=== PATIENT | female | born 1940 | race Caucasian/White ===

== ENCOUNTER → 2023-05-19 10:00 | Outpatient (REF) | payer MEDICARE, OTHER, SELFPAY | LOC: WOUND 10:00 | PROVIDERS: ATTENDING PHYSICIAN Surgery; REFERRING PHYSICIAN Internal Medicine | DX: L97.822 Non-pressure chronic ulcer of other part of left lower leg with fat layer exposed (principal); S81.812A Laceration without foreign body, left lower leg, initial encounter; I87.2 Venous insufficiency (chronic) (peripheral); X58.XXXA Exposure to other specified factors, initial encounter | CPT/HCPCS: 97597 ==

== ENCOUNTER → 2023-05-28 16:00 | Outpatient (REF) | payer MEDICARE, OTHER, SELFPAY | LOC: WOUND 16:00 | PROVIDERS: ATTENDING PHYSICIAN Surgery; REFERRING PHYSICIAN Internal Medicine | DX: L97.822 Non-pressure chronic ulcer of other part of left lower leg with fat layer exposed (principal); S81.812A Laceration without foreign body, left lower leg, initial encounter; I87.2 Venous insufficiency (chronic) (peripheral); X58.XXXA Exposure to other specified factors, initial encounter | CPT/HCPCS: 11042; 97597 ==

== ENCOUNTER → 2024-01-18 08:27 | Outpatient (REF) | payer MEDICARE, OTHER, SELFPAY ==
[2024-01-18 09:12] LABS: % Basophils 1.2 % (0-2); % Eosinophils 1.2 % (0-6); % Immature Granulocytes 0.5 % (0-0.5); % Lymphocytes 36.8 % (20.5-51.1); % Monocytes 10.1 % (1.7-9.3); % Neutrophils 50.2 % (42.2-75.2); Absolute Basophils 0.1 10^3/uL (0-0.2); Absolute Eosinophils 0.1 10^3/uL (0-0.7); Absolute Lymphocytes 1.6 10^3/uL (1.2-3.4); Absolute Monocytes 0.4 10^3/uL (0.1-0.6); Absolute Neutrophils 2.2 10^3/uL (1.4-6.5); Hemoglobin 13.8 g/dL (12.0-16.0); Mean Corp Hgb Conc. 33.7 g/dL (33.0-37.0); Mean Corpuscular Hgb 30.7 pg (27.0-31.0); Mean Corpuscular Volume 91.1 fL (81.0-99.0); Mean Platelet Volume 9.8 fL (7.4-10.4); Nucleated Red Blood Cells % 0 %; Platelet Count 216 10^3/uL (130-400); Red Cell Dist. Width 12.6 % (11.5-14.5); White Blood Cell Count 4.3 10^3/uL (4.8-10.8)
[2024-01-18 10:05] LABS: Vitamin D, 25-OH*** 54.4 ng/mL (30-80)
[2024-01-18 10:06] LABS: ALT (SGPT) 16 U/L (0-35); AST (SGOT) 25 U/L (14-36); Albumin 3.8 g/dl (3.5-5.0); Alkaline Phosphatase 62 U/L (38-126); Blood Urea Nitrogen 16 mg/dl (7-17); Calcium 9.1 mg/dl (8.4-10.2); Carbon Dioxide 30 mmol/L (22-30); Chloride 109 mmol/L (98-107); Glucose 86 mg/dl (70-99); HDL Cholesterol 76 mg/dl; LDL Cholesterol, Calculated 191 mg/dl; Potassium 4.1 mmol/L (3.5-5.1); Sodium 141 mmol/L (135-145); Total Bilirubin 1.2 mg/dl (0.2-1.3); Total Cholesterol 286 mg/dl (50-199); Total Protein 6.1 g/dl (6.3-8.2); Triglyceride 96 mg/dl (10-149); Very Low Density Lipoprotein 19 mg/dl (0-30); eGFR > 60.00
[2024-01-18 10:18] LABS: TSH 3.19 uIU/ml (0.47-4.68)
== END ==
LOC: REG 08:27
PROVIDERS: ATTENDING PHYSICIAN Nuclear Medicine Nuclear Cardiology; FAMILY PHYSICIAN Internal Medicine
DX: E78.2 Mixed hyperlipidemia (principal); K21.9 Gastro-esophageal reflux disease without esophagitis; Z00.00 Encounter for general adult medical examination without abnormal findings; Z79.899 Other long term (current) drug therapy; E21.3 Hyperparathyroidism, unspecified
CPT/HCPCS: 36415; 80053; 80061; 82306; 84443; 85025

== ENCOUNTER 2024-07-05 10:51 | Outpatient (RCR) | payer MEDICARE, OTHER, SELFPAY | END 2024-07-05 23:59 | disposition home or self-care (01) | LOC: RPT 10:51 | PROVIDERS: ATTENDING PHYSICIAN Psychiatry & Neurology Neurology | DX: M54.2 Cervicalgia (principal); Z73.6 Limitation of activities due to disability | CPT/HCPCS: 97010; 97110; 97112; 97140; 97162 ==

== ENCOUNTER 2024-07-19 10:36 | Outpatient (RCR) | payer MEDICARE, OTHER, SELFPAY | END 2024-07-19 23:59 | disposition home or self-care (01) | LOC: RPT 10:36 | PROVIDERS: ATTENDING PHYSICIAN Psychiatry & Neurology Neurology | DX: M54.2 Cervicalgia (principal); Z73.6 Limitation of activities due to disability | CPT/HCPCS: 97010; 97140 ==

== ENCOUNTER 2024-08-09 02:38 | Observation (INO) | payer MEDICARE, OTHER, SELFPAY ==
[2024-08-08 19:34] VITALS: BP 144/56
[2024-08-08 19:56] LABS: % Basophils 0.3 % (0-2); % Immature Granulocytes 0.8 % (0-0.5); % Lymphocytes 1.7 % (20.5-51.1); % Monocytes 2.3 % (1.7-9.3); % Neutrophils 94.9 % (42.2-75.2); Absolute Basophils 0.1 10^3/uL (0-0.2); Absolute Immature Granulocytes 0.2 10^3/uL (0-0.05); Absolute Lymphocytes 0.3 10^3/uL (1.2-3.4); Absolute Monocytes 0.4 10^3/uL (0.1-0.6); Absolute Neutrophils 18.6 10^3/uL (1.4-6.5); Hemoglobin 14.8 g/dL (12.0-16.0); Mean Corp Hgb Conc. 35.2 g/dL (33.0-37.0); Mean Corpuscular Hgb 30.7 pg (27.0-31.0); Mean Corpuscular Volume 87.1 fL (81.0-99.0); Mean Platelet Volume 9.4 fL (7.4-10.4); Nucleated Red Blood Cells % 0 %; Platelet Count 179 10^3/uL (130-400); Red Blood Cell Count 4.82 10^6/uL (4.20-5.40); Red Cell Dist. Width 12.1 % (11.5-14.5); White Blood Cell Count 19.5 10^3/uL (4.8-10.8)
[2024-08-08 20:00] VITALS: BP 139/51
[2024-08-08 20:19] LABS: ALT (SGPT) 35 U/L (0-35); AST (SGOT) 50 U/L (14-36); Albumin 4.1 g/dl (3.5-5.0); Alkaline Phosphatase 62 U/L (38-126); Blood Urea Nitrogen 28 mg/dl (7-17); Calcium 9.4 mg/dl (8.4-10.2); Carbon Dioxide 25 mmol/L (22-30); Chloride 100 mmol/L (98-107); Glucose 131 mg/dl (70-99); Potassium 4.3 mmol/L (3.5-5.1); Sodium 135 mmol/L (135-145); Total Bilirubin 1.7 mg/dl (0.2-1.3); Total Protein 6.2 g/dl (6.3-8.2); eGFR > 60.00
--- NOTE | 2024-08-08 22:34 | ED.GENMED ---
History of Present Illness
General
Chief Complaint: Dizziness
Source: patient
Exam Limitations: none
Time Seen by Provider: 08/08/24 22:13
History of Present Illness
History of Present Illness:
This is a 84 year old female that comes in with c/o dizziness. States that she has pain in the occipital nerve and she is waiting for an MRI on August. States that her pain seems to be getting worse. States that its like a Migraine. States
that last night she got up at 3am and she was dizzy and needed to hold on to things. States that she felt like she was spinning. Then at 4am her neck pain awoke her and she was still spinning when she went to the BR. Then at 5am it was just as bed.
States that she has not eaten today but she took her medication. States that she had chills, headache all over with dizziness and nausea. States that she also had this shock that was only 1 second in her chest. Son states that what concerned him was
she was sleeping all day. Denies any fever, chest pain, SOB, abd pain, vomiting, diarrhea, urinary burning.
Past History
Past History
ED Past Medical History: Cancer (Skin CA), COPD, GERD, Hypercholesterolemia and Other (Dizziness, Neck pain, PNA, IBS, Renal calculus, UTI, Rosacia, LBBB, Ulcers)
ED Past Surgical History: Cholecystectomy
Social History
Tobacco: Former smoker
Alcohol: None
Personal:
Living: with family
Review of Systems
Review of Systems
All Other Systems: ROS reviewed and negative except as documented in HPI and ROS
Constitutional: Reports chills; Denies fever
EENT: Reports no symptoms
Respiratory: Denies cough or trouble breathing
Cardiac: Reports no symptoms; Denies chest pain
ABD/GI: Reports nausea; Denies abdominal pain, vomiting or diarrhea
: Denies dysuria, frequency or urgency
Musculoskeletal: Reports no symptoms
Skin: Reports no symptoms
Neurological: Reports dizzy and headache (All over)
Psychiatric: Reports no symptoms
Phy Exam
General Physical Exam
General Presentation: no apparent distress
General age: appears stated age
General Skin: warm and dry
General Habitus: elderly
General Mental: alert
General Hydration: dry mucous membranes
ENT Exam
ENT Exam: TM's normal and pharynx normal
Eye Exam
Eye Exam: EOMI
Cardiovascular Exam
Cardiovascular Exam: regular rate/rhythm and normal peripheral pulses
Pulmonary Exam
Pulmonary Exam: lungs clear, no respiratory distress, no rales, chest non tender, no crackles, no rhonchi, no wheezing and no cough
Gastrointestinal Exam
Gastrointestinal Exam: normal bowel sounds, non tender, soft, no organomegaly, no pulsatile mass and non distended
Musculoskeletal Exam
Musculoskeletal Exam: full ROM and edema (Very slight lower leg edema nonpitting)
Skin Exam
Skin Exam: normal color, warm/dry, no rash and no petechia
Psychiatric Exam
Psychiatric Exam: normal mood/affect
Course
Orders/Labs/Results
Orders:
Orders
08/08/24 19:49
CMP [Comprehensive Metabolic Panel] Urgent
Complete Blood Count/With Diff Urgent
08/08/24 22:26
Straight cath- Treatment ONCE
0.9% Sodium Chloride 1000 ml [Nss] 1,000 ml IV BOLUS
Acetaminophen [Tylenol] 1,000 mg PO NOW STA
08/08/24 22:27
CT Head W/o Iv Contrast Urgent
Comment:
Reason For Exam: Dizziness. Headache
08/08/24 22:41
Electrocardiogram (*1) Urgent
Reason for Study: Vertigo / Dizzy
EKG- Treatment ONCE
08/08/24 23:02
Urinalysis Reflex To Culture Urgent
Date Specimen was Collected: 08/08/24
Time Specimen was Collected: 22:29
Urine Microscopic Reflex Cult Urgent
Urine Culture Urgent
NEHEMIAH Source: U
Specimen Description:
Date Specimen was Collected: 08/08/24
Time Specimen was Collected: 22:29
08/08/24 23:34
COVID-19 Antigen Urgent
Source: Nasal Swab
Troponin I Urgent
08/09/24 01:01
Ketorolac [Toradol] 15 mg IV NOW STA
08/09/24 01:56
Gabapentin [Neurontin] 300 mg PO NOW STA
Abnormal Lab Results
08/08/24 08/08/24
19:49 23:02
WBC 19.5 H 10^3/uL
(4.8-10.8)
Abs Immat Gran (auto) 0.2 H 10^3/uL
(0-0.05)
Absolute Neuts (auto) 18.6 H 10^3/uL
(1.4-6.5)
Absolute Lymphs (auto) 0.3 L 10^3/uL
(1.2-3.4)
Immature Gran % 0.8 H %
(0-0.5)
Neutrophils % 94.9 H %
(42.2-75.2)
Lymphocytes % 1.7 L %
(20.5-51.1)
BUN 28 H mg/dl
(7-17)
Glucose 131 H mg/dl
(70-99)
Total Bilirubin 1.7 H mg/dl
(0.2-1.3)
AST 50 H U/L
(14-36)
Total Protein 6.2 L g/dl
(6.3-8.2)
Urine Ketones Trace A
(Negative)
Ur Occult Blood Reflex 1+ A
(Negative)
Urine Bilirubin 1+ A
(Negative)
Leukocyte Esterase Rfl Trace A
(Negative)
Urine RBC 3-6 A /HPF
(0-2)
Urine Bacteria (Reflex) Moderate A
(Negative)
08/08/24 19:49
08/08/24 19:49
Leukocytosis, Dehydration. Hyperglycemia, Total joe elevation. AST mildly elevated .Total protein slightly low. Urine negative for infection.
Vital Signs
Initial and Last Documented VS:
Initial Vital Signs
Temp Pulse Resp BP Pulse Ox
97.8 F 110 24 144/56 96
08/08/24 19:34 08/08/24 19:34 08/08/24 19:34 08/08/24 19:34 08/08/24 19:34
Last Documented Vital Signs
Temp Pulse Resp BP Pulse Ox
97.8 F 87 17 139/51 94
08/08/24 19:34 08/08/24 23:45 08/08/24 23:45 08/08/24 23:37 08/08/24 23:45
MDM/Problems Addressed
Differential Diagnosis Includes:
UTI, Chronic dizziness, Vertigo, Dehydration
MDM/Problems Addressed:
This is a 84 year old female that comes in with c/o dizziness. States that she is waiting for an MRI for her Occipital nerve pain. States that she awoke last night with dizziness.
Will check labs, Urine CT head and given IV fluids.
Back into see patient after speaking with Son. Explained that her blood work shows that her WBC are elevated and that she is dehydrated. Continue to wait for the Bottom half of patient urine. Will admit patient due to the Dizziness and headache.
Patient continues with a headache so will give Toradol. Hospitalist notified.
Chronic conditions affecting care:
Occipital nerve pain, UTI
Acute Exacerbation and/or Progression of Chronic Illness:
Dehydration. Occipital nerve pain
*Radiology
Radiology exam reviewed: radiology read reviewed (CT head- Night hawk-NO acute intracrnial process. No intracranial bleed. No calvarial fracture)
*Pulse Oximetry
Patient hypoxic: no
*EKG
Interpreted by ED Provider?: Yes
Heart Rate: 81
Rate: normal
Rhythm: sinus and PAC's
[place]: left axis deviation
Interval: normal interval
QRS Pattern: left bundle branch block
Ischemia: no ischemia
*Critical Care Note
Total Time (30-74mins, 75-104mins- exclusive of procedures): Not Applicable
ED Attending Note
-
Portions of this chart may have been created with voice recognition software.� Occasional wrong word or��sound alike� substitutions may have occurred due to the inherent limitations of voice recognition software.
Discharge Plan
Departure
Prescriptions:
No Action
metronidazole [MetroCream] 0.75 % cream
1 applic topical DAILY
Patient Comments:
facial cream for Rosacea.
cyclosporine [Restasis] 0.4 ML dropperette
1 drp BOTH EYES BID
mesalamine [Lialda] 1.2 GM tablet,delayed release (DR/EC)
2.4 g PO Q12H
Repatha Syringe
1 dose INJ [id number]
meloxicam 15 MG tablet
15 mg PO PRN PRN (Reason: pain)
famotidine 40 MG tablet
40 mg PO BID
tramadol 50 MG tablet
50 mg PO Q6HPRN PRN (Reason: pain)
pantoprazole 40 MG tablet,delayed release (DR/EC)
40 mg PO DAILY PRN (Reason: stomach)
gabapentin 100 MG capsule
300 mg PO HS
albuterol sulfate [Proventil HFA] 90 MCG/PUFF HFA aerosol inhaler
1 puff inhalation PRN PRN (Reason: SOB)
ipratropium bromide 0.5 MG/2.5 ML solution
0.5 mg inhalation R Q4HPRN PRN (Reason: distress)
cyclobenzaprine [Amrix] 15 MG capsule,extended release 24hr
15 mg PO PRN PRN (Reason: pain)
budesonide [Pulmicort Flexhaler] 90 MCG aerosol powdr breath activated
90 mcg inhalation R BID PRN (Reason: SOB)
vit C,E-Fq-iszyr-lutein-zeaxan [PreserVision AREDS-2] 1 EACH capsule
1 ea PO BID
Lactobacillus Combo No.10 [Probiotic] 1 EACH Capsule
1 ea PO DAILY
Vitamin D3 (cholecalciferol):
5,000 units PO DAILY
diazepam [Valium] 2 mg tablet
2 mg PO TID PRN (Reason: muscle spasm) Qty: 6 0RF
Referrals:
Jose Campo DO [Family Provider] -
Interventions
Interventions:
*Risk Screen - Suicide Last Done: 08/08/24 19:27
*Neglect/Abuse Screening Last Done: 08/08/24 19:34
Discharge Date and Time
Print Language: KYRGYZ
[2024-08-08] MEDS: TYLENOL 1000 MG PO (22:56)
[2024-08-08] MEDS: NSS 1000 IV (22:57)
[2024-08-08 23:10] LABS: Urine Albumin Trace (Neg - Trace); Urine Bilirubin 1+ (Negative); Urine Character Clear (Clear); Urine Color Yellow; Urine Glucose Negative (Negative); Urine Ketone Trace (Negative); Urine Leukocyte Trace (Negative); Urine Nitrite Negative (Negative); Urine Occult Blood 1+ (Negative); Urine Urobilinogen 1+ (Neg - 1+)
[2024-08-08 23:37] VITALS: BP 139/51
[2024-08-09] VITALS (7 sets, daily range): BP systolic 117–156; BP diastolic 48–78; BMI 26.2; BMI 25.9
[2024-08-09 00:13] LABS: COVID-19 Antigen Negative (Negative); Troponin I < 0.012 ng/ml
[2024-08-09 01:07] LABS: Urine Mucus Many; Urine Squamous Cell 0-2 /LPF (Few)
[2024-08-09 01:08] LABS: Urine Bacteria Moderate (Negative)
[2024-08-09] MEDS: TORADOL 15 MG IV (01:17)
--- NOTE | 2024-08-09 01:57 | HPS.HSE ---
Family Physician
-
Family Physician: Jose Campo
Chief Complaint
-
Dizziness
History of Present Illness
This is an 84-year-old female with a past medical history significant for cervicogenic head pain, inflammatory bowel disease with possible component of irritable bowel syndrome, hyperlipidemia, rosacea,
possible nephrolithiasis, probable hemorrhoids degenerative disk disease, and degenerative joint disease who presents to the emergency department with acute onset of vertigo.
Patient reported that she woke up at around 3 AM yesterday and had severe spinning sensation while walking to her bathroom. She had to hold on to keep her cell from falling. She was nauseous but there was no vomiting. She went back to rest and
slept till 5 AM. At 5 AM when she got up she continued to have with severe spinning sensation and difficulty ambulating. She said that since then anytime she is up walking or even when she is sitting down at rest she has a spinning sensation. She
is only free of it when she is sleeping. She denies having any vision changes. She denies any headache. She denies any changes in neck pain. She has chronic cervicogenic headaches and reports that current headache is similar to that. She denies
any fevers or chills. She denies any recent cough cold or flulike symptoms. She denies any palpitations. She denies any syncopal episode.
She denies urinary symptoms. She reported that she was sleepy throughout most of the day and this caused concern for someone brought her to the emergency department. She denies any changes to her speech but reports is somewhat clouded thinking.
She denies any facial asymmetry. She denies any new numbness or tingling. She denies any focal weakness in her extremities. She denied any memory lapses.
Images by me she was afebrile blood pressure was 159/51 pulse 89 oxygen saturation was not 4% on room air. ECG shows a sinus rhythm rate of 81 and a left bundle branch block which is unchanged. Few PACs. CT of the head shows no acute intracranial
process. She had a white count of 19,000 with 95% neutrophils. Hemoglobin and platelet counts are within normal limits. Chemistries were within normal limits. LFTs were within normal limits. UA is equivocal.
Medical History
Past Medical History
Past Medical History: Reports Other
Additional Past Medical History:
headache
Chronic osteoarthritis
Inflammatory bowel disease
HLD
Past Surgical History: Reports None
Social History
Tobacco: Non-smoker
Alcohol: None
Drug: None
Personal:
Living: With Family
Employment: Retired
Family History
Family History: Not pertinent
Allergies / Home Medications
Allergies reflects when Allergies were last updated in [facility].
Home Medications with original date entered in [facility]
Allergy/Medication List:
Allergies
Allergy/AdvReac Type Severity Reaction Status Date / Time
adhesive tape Allergy Itching Verified 08/08/24 19:38
Wqntqwe-MNP-EkV Reductase Allergy Unknown Verified 08/08/24 19:38
Inhibitor
Home Medications
cyclosporine 0.05 % eye drops in a dropperette (Restasis) 1 drp BOTH EYES BID 03/14/11
metronidazole 0.75 % topical cream (MetroCream) 1 applic topical DAILY 03/14/11
Lactobacillus Combo No.10 [Probiotic] 1 ea PO DAILY 08/16/21
Repatha Syringe 1 dose INJ [id number] 08/16/21
Vitamin D3 (cholecalciferol): 5,000 units PO DAILY 08/16/21
albuterol sulfate 90 mcg/actuation aerosol inhaler (Proventil HFA) 1 puff inhalation PRN PRN SOB 08/16/21
budesonide 90 mcg/actuation breath activated powder inhaler (Pulmicort Flexhaler) 90 mcg inhalation R BID PRN SOB 08/16/21
cyclobenzaprine 15 mg capsule,extended release 24 hr (Amrix) 15 mg PO PRN PRN pain 08/16/21
famotidine 40 mg tablet 40 mg PO BID 08/16/21
gabapentin 100 mg capsule 300 mg PO HS 08/16/21
ipratropium bromide 0.02 % solution for inhalation 0.5 mg inhalation R Q4HPRN PRN distress 08/16/21
meloxicam 15 mg tablet 15 mg PO PRN PRN pain 08/16/21
mesalamine 1.2 gram tablet,delayed release (Lialda) 2.4 g PO Q12H 08/16/21
pantoprazole 40 mg tablet,delayed release 40 mg PO DAILY PRN stomach 08/16/21
tramadol 50 mg tablet 50 mg PO Q6HPRN PRN pain 08/16/21
vit C 250 mg-vit E 90 mg-zinc 40 mg-copper 1 [id number]-[id number] capsule (PreserVision AREDS-2) 1 ea PO BID 08/16/21
diazepam 2 mg tablet (Valium) 2 mg PO TID PRN muscle spasm #6 tabs 09/22/23
Review of Systems
-
History Source: Patient
Constitutional: Reports No Symptoms
EENT: Reports No Symptoms
Respiratory: Reports No Symptoms
Cardiac: Reports No Symptoms
Abdomen/GI: Reports No Symptoms
: Reports No Symptoms
Musculoskeletal: Reports No Symptoms
Skin: Reports No Symptoms
Neurological: Reports Dizzy and Headache
Endocrine: Reports No Symptoms
Hematologic/Lymphatic: Reports No Symptoms
Psych: Reports No Symptoms
Physical Exam
Vital Signs
Vital Signs
Temp Pulse Resp BP Pulse Ox
97.8 F 87 17 139/51 94
08/08/24 19:34 08/08/24 23:45 08/08/24 23:45 08/08/24 23:37 08/08/24 23:45
Physical Exam
General: Well Developed, Well Nourished and Conversant
HEENT: NormoCephalic, Anicteric, Moist mucous membranes, Atraumatic, PERRLA and Neck Nontender
Respiratory: Clear
Cardiac: S1/S2 and Regular Rhythm
Breast: Deferred by me
GI: Soft, Non Tender, Non Distended and Normal Bowel Sounds
Rectal: Deferred by Provider
Genito-urinary: No costovertebral tender
Musculoskeletal: No Clubbing, No Cyanosis and No Edema
Skin: Warm
Neuro: AO x 3, Nonfocal/grossly intact and Other (bilateral nystagmus. Negative kernig )
Hematologic/Lymphatic: No Lymphadenopathy
Psych: Calm
Laboratory Results
-
08/08/24 19:49
08/08/24 19:49
Laboratory Results
Total Bilirubin 1.7 mg/dl (0.2-1.3) H 08/08/24 19:49
AST 50 U/L (14-36) H 08/08/24 19:49
ALT 35 U/L (0-35) 08/08/24 19:49
Alkaline Phosphatase 62 U/L (38-126) 08/08/24 19:49
Troponin I < 0.012 ng/ml 08/08/24 23:34
Data Reviewed
-
CT Scan: Report Reviewed by me
Medical Tests (Nuc Med, Echo, EKG etc): Image Personally Visualized and interpreted
Lab Data: Labs Reviewed by me
Old Records: Reviewed
Impression/Plan
-
IMPRESSION:
This is an 84-year-old with chronic cervicogenic headaches presents to the emergency pain with sudden onset of dizziness over 1 day.. Evaluation in the emergency department is negative for acute stroke or intracranial bleed. [place] [id number] but otherwise shows no signs of an acute infection. Patient has no fevers, has no focal neurological deficits, has no encephalopathy, has no neck stiffness. She has bilateral nystagmus on my exam and still has persistent vertigo
even while laying down although markedly improved. Denies prior history of vertigo. Headache is very similar to a prior cervicogenic headaches.
PLAN:
Dizziness -given persistent and episodic presentation of this dizziness occurring acutely and lasting throughout the day suspect acute vestibular neuritis, however there is no lateralization of the nystagmus. Therefore the central vertigo cannot be
ruled out.
- admit to telemetry
- iv fluids
- meclizine 25mg now and prn vertigo
- mri brain in am
- pt evaluation
- antiemetics prn
Headache - C/w previous cervicogenic HAs. Elevated WBC but no other infectious signs. CT head is negative.
- continue prn NSAIDs, Acetaminophen
- standing gabapentin hs
- mri brain in am
- check esr/crp
Leukocytosis - Marked leukocytosis. No focal infectious signs and patient well appearing. Denies being on steroids recently
- check esr/crp
- trend for now and hold off abx
- obtain u/a
DVT PPX - lovenox sq
Code Status - Full Code
[2024-08-09] MEDS: ANTIVERT 25 MG PO (02:19)
[2024-08-09] MEDS: NEURONTIN 300 MG PO ×2 (02:19→22:15)
[2024-08-09] MEDS: NSS 1000 IV ×2 (05:34→17:15)
[2024-08-09 06:28] LABS: Hemoglobin 12.3 g/dL (12.0-16.0); Mean Corp Hgb Conc. 35.1 g/dL (33.0-37.0); Mean Corpuscular Hgb 31.6 pg (27.0-31.0); Mean Platelet Volume 9.6 fL (7.4-10.4); Platelet Count 137 10^3/uL (130-400); Red Blood Cell Count 3.89 10^6/uL (4.20-5.40); Red Cell Dist. Width 12.2 % (11.5-14.5); White Blood Cell Count 10.6 10^3/uL (4.8-10.8)
[2024-08-09 07:18] LABS: Erythrocyte Sed Rate 23 mm/hour (0-20)
--- NOTE | 2024-08-09 07:43 | W.PN.HOSP.TC ---
Addendum entered and electronically signed by Bruce Webster MD 08/09/24 16:19:
Non-billable note
I saw and evaluated the patient. I reviewed the resident�s note and agree with findings and plan as documented in the resident�s note.
Dizziness - have right beating horizontal nystagmus on lateral gaze. Dizziness of sudden onset as well. MRI brain negative. possible vestibular neuronitis vs BPPV. PT evluation requested. Maintain on IV steroids/meclizine for now. Zofran for n/v
Headache - H/o of cervicogenic headache, no current symptoms suggest to acute issue
Reactive leukocytosis - improved
Original Note:
Today's Communication/Plan
-
Follow up with the symptoms
Assessment / Plan
Assessment / Plan
Impression: The patient is a 84 year old female with a PMH of cervicogenic head pain, Skin Ca, COPD, GERD, HL, Neck pain, PNA, IBS, Renal calculus, UTI, Rosacea, LBBB who presented to ER complaining from severe dizziness. She reports this is the
worst dizziness she ever had in her life and it suddenly started at 3.00 am yesterday morning. She endorses feeling some nauseous at that time. She has chronic cervicogenic headaches and reports that current headache is similar to that. She denies
any syncope and palpitations. She reports like electric shock pain for one second on her chest which went away. She reports that she does not feel herself and feels less sharp than usual.
Assessment/Plan:
#Dizziness: Acute vestibular neuritis? Central vertigo?
-MRI brain 08/09: No MRI evidence for an acute infarct.
-Head CT 08/08: No acute intracranial abnormalities appreciated
-Lateralization of the nystagmus on the left side
-EOM:Ear wax bilateral: No infection sign
-No EKG changes: Monitor telemetry
-IV fluids
-Meclizine 25mg now and PRN vertigo
-Antiemetics PRN
-Was given IV steroids and additionally was started on PO steroids
-PT evaluation
#Headache
- Hx of cervicogenic Headache.
- CT head/ MRI brain negative.
- Continue PRN NSAIDs, Acetaminophen
#Leukocytosis likely reactive
-Resolved: Dropped from 19.5 to 10.6
-CBC check
-CRP elevated 219.30
-ESR:23
-No focal infectious sign
-Hold off abx
#DVT PPX - lovenox sq
Code Status - Full Code
Anticipated Discharge: 24 - 48 hours
Subjective/Interval History
-
Date of Service: August 09, 2024
The patient reported having headache and diazines still. But she reports her dizziness is much better than she presented to ER with.
Objective Data
-
Labs:
Laboratory Results
08/08/24 08/09/24
19:49 05:32
WBC 19.5 H 10.6
Hgb 14.8 12.3
Hct 42.0 35.0 L
Plt Count 179 137 D
Sodium 135
Potassium 4.3
Chloride 100
Carbon Dioxide 25
BUN 28 H
Creatinine 0.8
Glucose 131 H
Calcium 9.4
Total Bilirubin 1.7 H
AST 50 H
ALT 35
Alkaline Phosphatase 62
Vital Signs:
Vital Signs
Temp Pulse Resp BP Pulse Ox
97.8 F 68 21 139/53 98
08/08/24 19:34 08/09/24 06:38 08/09/24 05:30 08/09/24 06:38 08/09/24 06:50
Review of Systems
-
History Source: Patient
Constitutional: Reports No Symptoms
EENT: Reports No Symptoms Reported
Respiratory: Reports No Symptoms
Cardiac: Reports No Symptoms
Abdomen/GI: Reports No Symptoms
Genitourinary: Reports No Symptoms
Musculoskeletal: Reports No Symptoms
Skin: Reports Other (See HPI)
Neuro: Reports Other (Headache and dizziness )
Physical Exam
-
General: No Apparent Distress
HEENT: Normocephalic, Atraumatic and Other (Lateral nystagmus on the left)
Respiratory: Clear to Auscultation
Cardiac: Regular Rhythm and S1/S2
GI: Soft and Nontender
Musculoskeletal: No Clubbing
Skin: Other (Rosacia)
Neuro: Awake, Alert, Oriented, AO x 3, No Motor Deficits and Other
[2024-08-09] MEDS: TORADOL 10 MG IV ×2 (09:34→22:16)
[2024-08-09] MEDS: DELTASONE 40 MG PO (09:34)
--- NOTE | 2024-08-09 13:24 | PTCARENOTE ---
Pt w/ no urine output this morning via pure wick. Bladder scan shows 578 mL. Pt able to ambulate to bathroom - mild dizziness. Able to void on own - 550 mL dark yellow urine out.
[2024-08-09] MEDS: LOVENOX 40 MG SC (17:15)
[2024-08-10 03:13] VITALS: BP 118/55
[2024-08-10] MEDS: NSS 1000 IV (04:17)
[2024-08-10 05:50] LABS: Hematocrit 34.6 % (37.0-47.0); Mean Corp Hgb Conc. 34.7 g/dL (33.0-37.0); Mean Corpuscular Hgb 31.5 pg (27.0-31.0); Mean Corpuscular Volume 90.8 fL (81.0-99.0); Mean Platelet Volume 9.7 fL (7.4-10.4); Platelet Count 141 10^3/uL (130-400); Red Blood Cell Count 3.81 10^6/uL (4.20-5.40); Red Cell Dist. Width 12.2 % (11.5-14.5); White Blood Cell Count 7.2 10^3/uL (4.8-10.8)
[2024-08-10 06:04] LABS: Blood Urea Nitrogen 25 mg/dl (7-17); Calcium 8.5 mg/dl (8.4-10.2); Carbon Dioxide 23 mmol/L (22-30); Chloride 111 mmol/L (98-107); Estimated Creatinine Clearance 55 ml/min; Glucose 92 mg/dl (70-99); Potassium 3.8 mmol/L (3.5-5.1); Sodium 142 mmol/L (135-145); eGFR > 60.00
--- NOTE | 2024-08-10 06:17 | W.PN.HOSP.TC ---
Today's Communication/Plan
-
-Outpatient ENT office visit
- Discharge to home
Assessment / Plan
Assessment / Plan
Impression: The patient is a 84 year old female with a PMH of cervicogenic head pain, Skin Ca, COPD, GERD, HL, Neck pain, PNA, IBS, Renal calculus, UTI, Rosacea, LBBB who presented to ER complaining from severe dizziness. She reports this is the
worst dizziness she ever had in her life and it suddenly started 2 days ago at midnight at 3.00 am. . She endorses feeling some nauseous at that time. She has chronic cervicogenic headaches and reports that current headache is similar to that. She
denies any syncope and palpitations. She reports like electric shock pain for one second on her chest which went away. She reports that she does not feel herself and feels less sharp than usual. Her head CT and brain MRI showed no abnormality.
This morning, the patient reported feeling better after symptomatic and steroid treatment.
Assessment/Plan:
#Dizziness: Acute vestibular neuritis? Central vertigo?
-MRI brain 08/09: No MRI evidence for an acute infarct.
-Head CT 08/08: No acute intracranial abnormalities appreciated
-Lateralization of the nystagmus on the left side
-EOM:Ear wax bilateral: No infection sign
-No EKG changes: Monitor telemetry
-IV fluids
-Meclizine 25mg now and PRN vertigo
-Antiemetics PRN
-Was given IV steroids and additionally was started on PO steroids
-PT evaluation
#Headache
- Hx of cervicogenic Headache.
- CT head/ MRI brain negative.
- Continue PRN NSAIDs, Acetaminophen
#Leukocytosis likely reactive
-Resolved: Dropped to 7.2 on 08/10
-CBC check
-CRP elevated 219.30
-ESR:23
-No focal infectious sign
-Hold off abx
#DVT PPX - lovenox sq
Code Status - Full Code
Anticipated Discharge: Today
Subjective/Interval History
-
Date of Service: August 10, 2024
I saw the patient in her bed this morning reporting her dizziness mostly get resolved and her headache subsided after she was given steroid treatment. She feels comfortable to leave from the hospital today.
Objective Data
-
Labs:
Laboratory Results
08/10/24
05:12
WBC 7.2
Hgb 12.0
Hct 34.6 L
Plt Count 141
Sodium 142
Potassium 3.8
Chloride 111 H
Carbon Dioxide 23
BUN 25 H
Creatinine 0.8
Glucose 92
Calcium 8.5
Vital Signs:
Vital Signs
Temp Pulse Resp BP Pulse Ox
98.2 F 75 18 118/55 94
08/10/24 03:13 08/10/24 03:13 08/10/24 03:13 08/10/24 03:13 08/10/24 03:13
I&O
08/08/24 08/09/24 08/10/24
06:59 06:59 06:59
Intake Total 490 / 490
Balance 490 / 490
Review of Systems
-
EENT: Reports No Symptoms Reported
Respiratory: Reports No Symptoms
Cardiac: Reports No Symptoms
Abdomen/GI: Reports No Symptoms
Genitourinary: Reports No Symptoms
Musculoskeletal: Reports No Symptoms
Skin: Reports Other (See HPI )
Neuro: Reports Dizzy (Very less comparing to yesterday )
Endocrine: Reports No Symptoms
Physical Exam
-
General: Well Developed and Well Nourished
HEENT: Normocephalic, Atraumatic and Other (Bilateral ear wax )
Respiratory: Clear to Auscultation
Cardiac: Regular Rhythm
GI: Soft and Nontender
Musculoskeletal: No Clubbing and No Cyanosis
Skin: Other (Rosacia)
Neuro: Awake, Alert, Oriented, AO x 3 and No Motor Deficits
[2024-08-10] MEDS: DELTASONE 40 MG PO (07:34)
[2024-08-10 07:47] VITALS: BP 128/60
[2024-08-10 11:25] VITALS: BP 132/65; PULSE 69
[2024-08-10 11:26] VITALS: BP 132/65
--- NOTE | 2024-08-10 13:44 | W.DCSUMMARY ---
Discharge Summary
Discharge Data
Date of Admission: 08/09/24
Date of Discharge: 08/10/24
-
Pending Results: No
Hospital Course
Principal Discharge diagnosis:Dizziness possible due Acute Vestibular Neuritis
Chronic Discharge Diagnosis:cervicogenic head pain, Skin Ca, COPD, GERD, HL, Neck pain, PNA, IBS, Renal calculus, UTI, Rosacea, LBBB
Hospital Course : The patient is a 84 year old female presented to ER complaining from severe dizziness. She reported this is the worst dizziness she ever had in her life and it suddenly started. She endorsed feeling some nauseous at that time.
She has chronic cervicogenic headaches and reported that current headache is similar to that. She denied any syncope and palpitations. She reported like electric shock pain for one second on her chest which went away. Her head CT and brain MRI was
done and their results were unremarkable. She was given symptomatic treatment her dizziness and nausea and was started on steroids. This morning, the patient reported feeling much better and very less dizziness and feels comfortable to be discharged
from the hospital.
Problem #1:Dizziness: Possible due Acute vestibular Neuritis:Mostly resolved after symptomatic and steroid treatment.
Problem #2: #Headache: Resolved after the treatment with pain medicine.
problem #3 Leukocytosis likely reactive and resolved.
Important imaging studies:
08/[address]: IMPRESSION:
1. No acute intracranial abnormalities appreciated.
2. Mild atrophy and mild chronic small vessel change.
3. No significant change compared to prior study.
08/09 Brain MRI
IMPRESSION:
No MRI evidence for an acute infarct.
Discharge Plan
-
Patient Disposition: Home (Routine Discharge)
Discharge Diagnosis/Procedures: Vertigo, Vestibular neuritis
Condition: Fair
Diet: 2 Gram Sodium
Activity: As tolerated
Driving Restrictions: No driving for 24 hours
Bathing Restrictions: OK to Shower
Referrals:
Xavi Rhoades MD [Active] - in one week
Jose Campo DO [Family Provider] - in one week
Prescriptions:
New
meclizine 25 mg Tablet
25 mg PO Q8HPRN PRN (Reason: dizziness) Qty: 30 0RF
prednisone 20 mg tablet
40 mg PO DAILY Qty: 4 0RF
Continued
metronidazole [MetroCream] 0.75 % cream
1 applic topical DAILY
Patient Comments:
facial cream for Rosacea.
cyclosporine [Restasis] 0.4 ML dropperette
1 drp BOTH EYES BID
mesalamine [Lialda] 1.2 GM tablet,delayed release (DR/EC)
2.4 g PO DAILY
famotidine 40 MG tablet
40 mg PO DAILY
tramadol 50 MG tablet
50 mg PO Q6HPRN PRN (Reason: moderate pain)
gabapentin 100 MG capsule
300 mg PO HS
albuterol sulfate [Proventil HFA] 90 MCG/PUFF HFA aerosol inhaler
1 puff inhalation R Q4HPRN PRN (Reason: SOB)
Pulmicort Flexhaler 90 MCG aerosol powdr breath activated
90 mcg inhalation R BIDPRN PRN (Reason: SOB)
PreserVision AREDS-2 1 EACH capsule
1 ea PO BID
acetaminophen [Tylenol] 325 mg Tablet
325 mg PO HSPRN PRN (Reason: mild pain)
ibuprofen [Advil] 200 mg Tablet
400 mg PO DAILYPRN PRN (Reason: mild pain)
Discharge Orders:
Discharge Patient (As Directed); Ordered 08/10/24
Ordered By: Bruce Webster
Discharge Date and Time
Discharge Date/Time: 08/10/24 14:51
Print Language: LATVIAN
--- NOTE | 2024-08-10 13:51 | W.PN.UPDATE ---
Update Note
Progress Note Update
I saw and evaluated the patient. I reviewed the resident�s note and agree with findings and plan as documented in the resident�s note.
Peripheral Vertigo
Gaze provoked nystagmus - Improved
- have right beating horizontal nystagmus on lateral gaze.
- Dizziness of sudden onset as well.
- MRI brain negative.
- possible vestibular neuronitis, although head impulse test negative.
- PT evaluated and vestibular assessment was equivocal. Patient provided prescription for outpatient follow-up with vestibular therapy center
- Patient symptomatically better with empiric prednisone/meclizine and IVF, provide short course
- Patient to f/u with ENT
Cerumen impaction
- Both ear on otoscopic examination, ENT office referral provided.
Headache
- H/o of cervicogenic headache, no current symptoms suggest to acute issue
- MRI c spine pending OP basis.
Reactive leukocytosis
- improved
Patient able to walk without any assistance/walker 350 feet, having minimal dizziness only at this point. Patient cleared to be discharged home. Advised not to drive for next 48 hours
[2024-08-10] MEDS: NSS IV (14:07)
[2024-08-10] MEDS: FLUAD (65 yr+) 2024-2025 FORMULA 0.5 ML IM (14:33)
--- NOTE | 2024-08-10 14:56 | CM ---
Addendum entered by Aleyda Silveira RN 08/10/24 15:02:
LESTER letter given, explained, signed on chart.
Original Note:
Alert awake oriented patient who lives with her Lorenzo in a 1 story home with 2 steps to enter. She is independent in driving and all activates of daily living.She uses no adaptive devices.Offered Vn she declined . Humberto will drive them home.
Had VN in past . No SNF hx
Pharmacy [facility]
PCP Jose Rosario
PLAN Home with no needs . Pt aid she will fu with ENT
== END 2024-08-10 14:51 | disposition home or self-care (01) ==
LOC: 3 WEST ACU 02:38
PROVIDERS: Clinical Nurse Specialist Family Health; Student in an Organized Health Care Education/Training Program; ADMITTING PHYSICIAN Internal Medicine; ATTENDING PHYSICIAN Hospitalist; EMERGENCY PHYSICIAN Emergency Medicine; FAMILY PHYSICIAN Internal Medicine
DX: R42 Dizziness and giddiness (principal); M54.2 Cervicalgia; R68.83 Chills (without fever); R11.0 Nausea; H55.00 Unspecified nystagmus; R51.9 Headache, unspecified; D72.829 Elevated white blood cell count, unspecified; E86.0 Dehydration; R26.2 Difficulty in walking, not elsewhere classified; H61.23 Impacted cerumen, bilateral; E78.00 Pure hypercholesterolemia, unspecified; J44.9 Chronic obstructive pulmonary disease, unspecified; K21.9 Gastro-esophageal reflux disease without esophagitis; I44.7 Left bundle-branch block, unspecified; G31.9 Degenerative disease of nervous system, unspecified; I49.1 Atrial premature depolarization; R79.82 Elevated C-reactive protein (CRP); K58.9 Irritable bowel syndrome, unspecified; M19.90 Unspecified osteoarthritis, unspecified site; Z88.8 Allergy status to other drugs, medicaments and biological substances; Z91.048 Other nonmedicinal substance allergy status; Z79.51 Long term (current) use of inhaled steroids; Z87.440 Personal history of urinary (tract) infections; Z87.891 Personal history of nicotine dependence; Z90.49 Acquired absence of other specified parts of digestive tract; Z85.828 Personal history of other malignant neoplasm of skin; Z87.442 Personal history of urinary calculi; Z87.01 Personal history of pneumonia (recurrent); Z23 Encounter for immunization; Z11.52 Encounter for screening for COVID-19
CPT/HCPCS: 51701; 70450; 70551; 80048; 80053; 81003; 81015; 84484; 85025; 85027; 85652; 86140; 87086; 87811; 90662; 93005; 96361; 96374; 97162; 99285; G0008; G0378

== ENCOUNTER → 2024-08-15 15:40 | Outpatient (REF) | payer MEDICARE, OTHER, SELFPAY | LOC: PAVMRI 15:40 | PROVIDERS: ATTENDING PHYSICIAN Nurse Practitioner; FAMILY PHYSICIAN Internal Medicine; REFERRING PHYSICIAN Psychiatry & Neurology Neurology | DX: M47.812 Spondylosis without myelopathy or radiculopathy, cervical region (principal); M54.2 Cervicalgia; M54.12 Radiculopathy, cervical region | CPT/HCPCS: 72141 ==

== ENCOUNTER → 2024-08-22 11:24 | Outpatient (REF) | payer MEDICARE, OTHER, SELFPAY ==
[2024-08-22 13:41] LABS: Uric Acid 5.1 mg/dl (2.5-6.2)
[2024-08-22 13:52] LABS: Erythrocyte Sed Rate 22 mm/hour (0-20)
== END ==
LOC: REG 11:24
PROVIDERS: ATTENDING PHYSICIAN Internal Medicine
DX: M25.571 Pain in right ankle and joints of right foot (principal); R79.82 Elevated C-reactive protein (CRP)
CPT/HCPCS: 36415; 84550; 85652; 86140

== ENCOUNTER → 2024-08-26 12:12 | Outpatient (REF) | payer MEDICARE, OTHER, SELFPAY ==
[2024-08-26 13:37] LABS: % Basophils 0.9 % (0-2); % Eosinophils 1.3 % (0-6); % Immature Granulocytes 0.4 % (0-0.5); % Monocytes 8.3 % (1.7-9.3); % Neutrophils 58.1 % (42.2-75.2); Absolute Basophils 0.1 10^3/uL (0-0.2); Absolute Eosinophils 0.1 10^3/uL (0-0.7); Absolute Lymphocytes 1.7 10^3/uL (1.2-3.4); Absolute Monocytes 0.5 10^3/uL (0.1-0.6); Absolute Neutrophils 3.2 10^3/uL (1.4-6.5); Hematocrit 40.3 % (37.0-47.0); Hemoglobin 13.8 g/dL (12.0-16.0); Mean Corp Hgb Conc. 34.2 g/dL (33.0-37.0); Mean Corpuscular Hgb 31.8 pg (27.0-31.0); Mean Corpuscular Volume 92.9 fL (81.0-99.0); Mean Platelet Volume 9.5 fL (7.4-10.4); Nucleated Red Blood Cells % 0 %; Platelet Count 218 10^3/uL (130-400); Red Blood Cell Count 4.34 10^6/uL (4.20-5.40); Red Cell Dist. Width 11.9 % (11.5-14.5); White Blood Cell Count 5.5 10^3/uL (4.8-10.8)
[2024-08-26 13:39] LABS: Urine Albumin Negative (Neg - Trace); Urine Bilirubin Negative (Negative); Urine Character Clear (Clear); Urine Color Yellow; Urine Glucose Negative (Negative); Urine Ketone Negative (Negative); Urine Leukocyte Negative (Negative); Urine Nitrite Negative (Negative); Urine Occult Blood Negative (Negative); Urine Urobilinogen Negative (Neg - 1+)
[2024-08-26 14:00] LABS: Erythrocyte Sed Rate 19 mm/hour (0-20)
[2024-08-26 14:08] LABS: Blood Urea Nitrogen 18 mg/dl (7-17); Calcium 9.7 mg/dl (8.4-10.2); Carbon Dioxide 29 mmol/L (22-30); Chloride 103 mmol/L (98-107); Glucose 86 mg/dl (70-99); Potassium 4.6 mmol/L (3.5-5.1); Sodium 141 mmol/L (135-145); eGFR > 60.00
== END ==
LOC: REG 12:12
PROVIDERS: ATTENDING PHYSICIAN Nurse Practitioner Family; FAMILY PHYSICIAN Internal Medicine
DX: R07.89 Other chest pain (principal); R70.0 Elevated erythrocyte sedimentation rate
CPT/HCPCS: 36415; 71046; 80048; 81003; 85025; 85652; 86140

== ENCOUNTER → 2024-12-17 08:03 | Outpatient (REF) | payer MEDICARE, OTHER, SELFPAY ==
[2024-12-17 08:29] LABS: Urine Albumin Negative (Neg - Trace); Urine Bilirubin Negative (Negative); Urine Character Clear (Clear); Urine Color Yellow; Urine Glucose Negative (Negative); Urine Ketone Negative (Negative); Urine Leukocyte 2+ (Negative); Urine Nitrite Negative (Negative); Urine Occult Blood Negative (Negative); Urine Urobilinogen Negative (Neg - 1+)
[2024-12-17 08:46] LABS: Urine Red Blood Cell 0-2 /HPF (0-2)
[2024-12-17 08:47] LABS: Urine Bacteria Few (Negative)
[2024-12-17 09:01] LABS: ALT (SGPT) 24 U/L (0-35); AST (SGOT) 26 U/L (14-36); Alkaline Phosphatase 65 U/L (38-126); Blood Urea Nitrogen 22 mg/dl (7-17); Calcium 9.4 mg/dl (8.4-10.2); Carbon Dioxide 32 mmol/L (22-30); Chloride 104 mmol/L (98-107); Glucose 90 mg/dl (70-99); HDL Cholesterol 79 mg/dl; LDL Cholesterol, Calculated 190 mg/dl; Potassium 4.7 mmol/L (3.5-5.1); Sodium 140 mmol/L (135-145); Total Bilirubin 0.8 mg/dl (0.2-1.3); Total Cholesterol 291 mg/dl (50-199); Total Protein 6.4 g/dl (6.3-8.2); Triglyceride 110 mg/dl (10-149); Very Low Density Lipoprotein 22 mg/dl (0-30); eGFR > 60.00
[2024-12-17 09:36] LABS: TSH 3.13 uIU/ml (0.47-4.68)
== END ==
LOC: REG 08:03
PROVIDERS: ATTENDING PHYSICIAN Internal Medicine
DX: E78.2 Mixed hyperlipidemia (principal); E21.3 Hyperparathyroidism, unspecified
CPT/HCPCS: 36415; 80053; 80061; 81003; 81015; 84443

== ENCOUNTER → 2025-01-27 12:37 | Outpatient (REF) | payer MEDICARE, OTHER, SELFPAY | LOC: WDC 12:37 | PROVIDERS: ATTENDING PHYSICIAN Obstetrics & Gynecology; FAMILY PHYSICIAN Internal Medicine | DX: M81.0 Age-related osteoporosis without current pathological fracture (principal); Z12.31 Encounter for screening mammogram for malignant neoplasm of breast | CPT/HCPCS: 77063; 77067; 77080 ==

== ENCOUNTER → 2025-04-21 10:50 | Outpatient (REF) | payer MEDICARE, OTHER, SELFPAY | LOC: RCS 10:50 | PROVIDERS: ATTENDING PHYSICIAN Nuclear Medicine Nuclear Cardiology; FAMILY PHYSICIAN Internal Medicine | DX: I44.7 Left bundle-branch block, unspecified (principal); E78.2 Mixed hyperlipidemia; R60.0 Localized edema | CPT/HCPCS: 93306 ==

== ENCOUNTER 2025-09-08 08:34 | Outpatient (RCR) | payer MEDICARE, OTHER, SELFPAY | END 2025-09-08 23:59 | disposition home or self-care (01) | LOC: RPT 08:34 | PROVIDERS: ATTENDING PHYSICIAN Orthopaedic Surgery; FAMILY PHYSICIAN Internal Medicine | DX: M17.11 Unilateral primary osteoarthritis, right knee (principal); Z73.6 Limitation of activities due to disability; R26.89 Other abnormalities of gait and mobility; M62.81 Muscle weakness (generalized) | CPT/HCPCS: 97010; 97110; 97162; 97535 ==

== ENCOUNTER 2025-09-27 10:25 | Outpatient (RCR) | payer MEDICARE, OTHER, SELFPAY | END 2025-09-27 23:59 | disposition home or self-care (01) | LOC: RPT 10:25 | PROVIDERS: ATTENDING PHYSICIAN Orthopaedic Surgery; FAMILY PHYSICIAN Internal Medicine | DX: M17.11 Unilateral primary osteoarthritis, right knee (principal); Z73.6 Limitation of activities due to disability; R26.89 Other abnormalities of gait and mobility; M62.81 Muscle weakness (generalized) | CPT/HCPCS: 97010; 97110; 97112 ==

== ENCOUNTER 2025-10-10 08:31 | Outpatient (RCR) | payer MEDICARE, OTHER, SELFPAY | END 2025-10-10 23:59 | disposition home or self-care (01) | LOC: RPT 08:31 | PROVIDERS: ATTENDING PHYSICIAN Orthopaedic Surgery; FAMILY PHYSICIAN Internal Medicine | DX: M17.11 Unilateral primary osteoarthritis, right knee (principal); Z73.6 Limitation of activities due to disability; R26.89 Other abnormalities of gait and mobility; M62.81 Muscle weakness (generalized) | CPT/HCPCS: 97010; 97110; 97112 ==